=== PATIENT | male | born 1975 | race Caucasian/White ===

== ENCOUNTER → 2021-04-29 | Day surgery (SDC) | payer OTHER ==
[~2021-04-29] VITALS: Ht 182.9 cm; Wt 102.0 kg
[~2021-04-29] MED LIST: AMBIEN CR6.25 MG PO; CLINDAMYCIN 15150 MG PO; GABAPENTIN600 MG PO; INDERAL 40MG TA40 MG PO; OMEPRAZOLE40 MG PO; OXYCODONE-ACET1 EAC1 PO; PRINIVIL20 MG PO; ZANAFLEX4 M1 PO; ZOLOFT100 M1 PO
[2021-04-29 08:03] LABS: BASOPHIL 0.9 % (0-2); EOSINOPHIL 2.2 % (0-5); HCT 43.7 % (42.0-52.0); HGB 15.8 g/dl (13.2-18.0); LYMPHOCYTE 27.2 % (15-48); MCH 32.3 pg (25.0-31.0); MCHC 36.2 g/dL (32.0-36.0); MCV 89.4 fL (78.0-100.0); MONOCYTE 10.3 % (0-12); MPV 10.5 fL (6.0-9.5); NRBC 0; PLT 205 K/uL (150-400); RBC 4.89 M/uL (4.70-6.00); RDW 12.4 % (11.5-14.0); WBC 7.9 K/uL (4.0-10.5)
[2021-04-29 08:13] LABS: INR 0.99 (0.9-1.2); PROTHROMBIN TIME 12.5 SECONDS (11.8-13.4); PTT 31.1 SECONDS (24.4-34.7)
[2021-04-29 08:25] LABS: ALBUMIN 3.7 g/dL (3.4-5.0); BILIRUBIN - TOTAL 0.4 mg/dL (0.2-1.0); BUN/CREAT RATIO (CALC) 17.8 RATIO; CREATININE 1.01 mg/dL (0.67-1.17); GLOBULIN (CALCULATION) 4.2 g/dL; POTASSIUM 3.8 mmol/L (3.5-5.1); TOTAL PROTEIN 7.9 g/dL (6.4-8.2)
== END | disposition home or self-care (01) ==
LOC: FAS 07:17
PROVIDERS: Oral & Maxillofacial Surgery
DX: K01.1 Impacted teeth (principal); K02.9 Dental caries, unspecified; K08.89 Other specified disorders of teeth and supporting structures; E11.9 Type 2 diabetes mellitus without complications; I10 Essential (primary) hypertension; F32.9 Major depressive disorder, single episode, unspecified; F41.9 Anxiety disorder, unspecified; Z79.899 Other long term (current) drug therapy; R00.1 Bradycardia, unspecified; K21.9 Gastro-esophageal reflux disease without esophagitis; G62.9 Polyneuropathy, unspecified
CPT/HCPCS: 36415; 80053; 85025; 85610; 85730; 93005; J1100; J1170; J2250; J2405; J2704; J2710; J3010; J7120